=== PATIENT | female | born 2000 | race Two or more races ===

== ENCOUNTER 2025-09-01 23:44 | Emergency (ER) | payer MEDICAID, SELFPAY ==
[2025-09-01 23:45] VITALS: BMI 23.8
[2025-09-01 23:56] VITALS: BP 119/77; PULSE 110; RESP 18; TEMP 36.9; O2SAT 95
--- NOTE | 2025-09-02 00:21 | XR_ITS ---
Examination: CT lumbar spine, without contrast. 2-D sagittal reconstructions. 2-D coronal reconstructions. 3-D reconstructions. Date and time of exam: September 02, 2025, 0200 hours INDICATIONS: Low back pain beginning 2300 last night CTDI: vol (mGy): 17 DLP: (mGycm): 529 Technique: Multiple 1.25 mm axial sections of the lumbar spine without intravenous contrast have been obtained. 2-D sagittal and coronal reconstructions have been obtained. 3-D reconstructions have been obtained. Low dose protocols were performed. One or more of the following dose reduction techniques were used; automated exposure control, adjustment of the mA and/or KV according to patient size, use of iterative reconstruction technique. Findings: Satisfactory alignment lumbar vertebral bodies No lumbar fracture. No spondylolisthesis Lumbar pedicles laminae transverse and posterior spinous processes intact L5-S1 3 mm central 5 mm left paracentral disc bulge displacing the left S1 nerve root, contiguous with the right S1 nerve root More cephalad levels unremarkable IMPRESSION: L5-S1 3 mm central 5 mm left paracentral disc bulge displacing the left S1 nerve root and contiguous with the right S1 nerve root As clinically warranted, consider elective MRI lumbar spine without contrast follow-up
--- NOTE | 2025-09-02 00:26 | EDNOTE_ITS ---
ED Back Injury Pain RME/HPI General Chief Complaint: Back Pain/Injury Stated Complaint: LOWER BACK PAIN Time Seen by Provider: 09/02/25 00:21 Arrival date/time: 09/01/25 23:44 25F with history of asthma and psych presents to ED with R lower back pain after she stood up and heard a pop. Now she has some intermittent tingling down RLE. Patient denies fall/trauma and bowel/bladder incontinence, as well as N/V and dysuria. Limitations: no limitations Related Data Previous Rx's ?Medication ?Instructions ?Recorded cetirizine 10 mg tablet (Zyrtec) 10 mg PO QDAY #30 tab s 11/29/19 sodium chloride 0.65 % nasal spray 2 spray intranasal QID PRN nasal 11/29/19 aerosol (Saline Nasal) congestion #60 mL Allergies Allergy/AdvReac Type Severity Reaction Status Date / Time watermelon Allergy Intermediate THROAT Verified 09/02/25 00:41 SWELLS cat dander Allergy Verified 09/02/25 00:41 hydrocodone Allergy Verified 09/02/25 00:41 olive oil Allergy Verified 09/02/25 00:41 AVACADO Allergy Swelling Uncoded 09/02/25 00:41 of Lip/Tongue/Throat PEACHES Allergy Swelling Uncoded 09/02/25 00:41 of Lip/Tongue/Throat Review of Systems Review of Systems Systems Reviewed: All systems reviewed, normal except as documented Musculoskeletal Musculoskeletal: Reports as per HPI, Reports back pain, Reports radiating pain into limb and Reports tingling Neurologic Neurologic: Reports as per HPI and Reports tingling Past Medical History Past Medical History CARDIAC: Negative Congestive Heart Failure RESPIRATORY: Positive Asthma; Negative Chronic Obstructive Pulmonary Disease (COPD) GENITOURINARY: Negative Renal Disease ENDOCRINE: Negative Diabetes Mellitus Type 1 or Diabetes Mellitus Type 2 PSYCHO/SOCIAL: Positive Depression and Anxiety Social History SMOKING STATUS: Never smoker ED Exam General Limitations: Present no limitations General appearance: Present alert and in distress Head Head exam: Present atraumatic Neck Neck exam: Present normal inspection, full ROM and trachea midline Chest Chest inspection: Present normal inspection and symmetric chest wall rise Back Exam Back exam: Present full ROM and tenderness Neurological Exam Neurological exam: Present alert and oriented X3 Psychiatric Psychiatric exam: Present normal affect and normal mood Skin Skin exam: Present warm, dry, intact and normal color Course Quality Measures none Orders Category Date Time Status CT lumbar spine wo con Stat Exams 09/02/25 00:21 Taken Beta HCG,Quantitative Stat Lab 09/02/25 00:50 Completed HYDROcodone*/APAP 5/325 [Nimitz 5/325] Med 09/02/25 00:21 Discontinued 1 tab PO X1 ONE Naproxen [Naprosyn] Med 09/02/25 00:44 Discontinued 500 mg PO X1 ONE dexAMETHasone INJ [Decadron Inj] Med 09/02/25 00:21 Discontinued 10 mg PO X1 ONE Vital Signs Vital signs: Vital Signs Temperature 98.5 F 09/01/25 23:56 Pulse Rate 110 H 09/01/25 23:56 Respiratory Rate 18 09/01/25 23:56 Blood Pressure 119/77 09/01/25 23:56 Pulse Oximetry (%) 95 09/01/25 23:56 Oxygen Delivery Method Room Air 09/01/25 23:56 O2 at 95% on RA and WNLs Back Pain / Injury MDM Narrative MDM Narrative:: 25F with history of asthma and psych presents to ED with R lower back pain after she stood up and heard a pop. Now she has some intermittent tingling down RLE. Patient denies fall/trauma and bowel/bladder incontinence, as well as N/V and dysuria. Physical exam reveals some R middle back tenderness. ROM limited. Patient appears to be in pain. Patient is afebrile and alert. HCG neg. CT telerad slipped disc with possible impingement. Meds improved symptoms. Internal [employer] given. Patient data External records reviewed:: [facility] previous records Clinical information provided by:: patient Social determinants that could affect healthcare access:: mental health Patient has the following chronic illnesses:: asthma and psych How is presenting disease/condition affected by chronic disease/condition?: uneffected by Evaluation data The following diagnostics were reviewed and interpreted by me:: lab results and radiology exam(s) Lab and/or radiology exams considered but not ordered:: ordered Interpretation Summary: above Medications / Prescriptions Medications or Prescriptions considered but not ordered:: ordered Medication administrations:: Medication Administration History Discontinued Medications Hydrocodone Bitart/Acetaminophen (Hydrocodone/Apap 5/325 Tablet) 1 tab PO X1 ONE Stop: 09/02/25 00:22 Last Admin: 09/02/25 00:45 Dose: Not Given Documented By: EE Non-Admin Reason: Cancelled by Provider Dexamethasone Sodium Phosphate (Dexamethasone Sod Phos Inj 10 Mg/Ml Vial) 10 mg PO X1 ONE Stop: 09/02/25 00:22 Last Admin: 09/02/25 00:40 Dose: 10 mg Documented By: GURINDER Naproxen (Naproxen 250 Mg Tablet) 500 mg PO X1 ONE Stop: 09/02/25 00:45 Last Admin: 09/02/25 00:53 Dose: 500 mg Documented By: GURINDER above Consultations Consultation(s) initiated? (list below): No Diagnosis Differential diagnosis back pain/injury: lumbar radiculopathy, sciatica, strain of lumbar region, renal colic, pyelonephritis, thoracic back pain, AAA, discitis and other (slipped disc) Most likely diagnosis given after review of the tests above:: slipped disc Admission Indicated Admission indicated?: not indicated Admission Request Was there a request for admission?: No Disposition Plan Disposition Plan: Discharge Discharge Attestation Discharge Attestation: The patient and all family members were given an opportunity to ask questions and understood the discharge instructions. Discharge instructions specifically effects, indications for sooner follow up or return to the emergency department, and the expected course of current diagnosis. Patient condition: Stable Discharge Plan Plan Patient Disposition: HOME (Self Care) Discharge Disposition comment: Stable Prescriptions/Referrals Prescriptions/Med Rec: No Action cetirizine [Zyrtec] 10 mg tablet 10 mg PO QDAY Qty: 30 0RF sodium chloride [Saline Nasal] 0.65 % aerosol,spray 2 spray INTRANASAL QID PRN (Reason: nasal congestion) Qty: 60 0RF Referrals: Temporary Provider,ED [Physician, Emergency Medicine] - In 1 week Problem List Clinical Impression: Slipped intervertebral disc Patient/Caregiver Discharge Instructions Education Materials: ED Back Pain (Acute or Chronic) Additional Instructions: Please follow-up with PCP within 24-48 hours and return immediately if symptoms worsen. If problem persists, recommend outpatient PT and/or MRI follow-up. In the meantime, rest, use ice/heat, and/or compression. NSAIDs like ibuprofen tend to work better for this type of pain. Print Language: Romanian Stand Alone Forms: Patient Portal Info Letter JEFFERSON/AYSHA Supervising Physician [facility] Supervising Physician: Dr. De Santiago
[2025-09-02] MEDS: NAPROXEN 250 MG TABLET 500 MG PO (00:53)
[2025-09-02 01:44] LABS: Beta HCG,Quantitative 1 mIU/mL (<5.0)
--- NOTE | 2025-09-02 02:44 | PRELIM_ITS ---
CT scan of the lumbar spine without intravenous contrast (axial sections with sagittal and coronal reformats) September 02, 2025 at 0200 hours Clinical History: Low back pain with intermittent numbness. Comparison: No prior study is available for comparison. Findings: There is no acute lumbar fracture or traumatic subluxation. The paravertebral soft tissues are unremarkable. Small posterior disc protrusion at the L3-L4 and L4-L5 without central canal or neuroforaminal stenosis. Moderate size posterior disc protrusion at L5-S1, eccentric to the left, touching but not displacing the left S1 nerve root. Impression: No evidence of acute lumbar fracture or traumatic subluxation. L5-S1 disc protrusion may impinge the left S1 nerve root. Report Electronically Signed By: Mir Day 09/02/2025 2:44:02 AM [EST]
[2025-09-02 03:10] VITALS: BP 113/75; PULSE 78; RESP 19; TEMP 36.9; O2SAT 99
== END 2025-09-02 03:10 | disposition home or self-care (01) ==
PROVIDERS: Physician Assistant; Emergency Provider Emergency Medicine
DX: M51.27 Other intervertebral disc displacement, lumbosacral region (principal)
CPT/HCPCS: 36415; 72131; 84702; 99283; J1100; A9270